=== PATIENT | male | born 1955 | race African-American/Black ===

== ENCOUNTER 2018-06-21 22:39 | Inpatient (IN) | payer OTHER ==
[~2018-06-21] VITALS: Ht 167.6 cm; Wt 61.2 kg
[2018-06-21] MEDS ORDERED: Sodium Chloride 500ML 500 ML IV ONE (22:49)
[2018-06-21] MEDS ORDERED: Solu-MEDROL 125mg Inj IVP ONE (23:00)
[2018-06-21] MEDS: Albuterol ud Inhalation HHN SCH ×3 (23:17→23:42)
[2018-06-21] MEDS: Ipratropium 0.02% Inh Soln 2.5ml UD HHN SCH ×3 (23:17→23:42)
--- NOTE | 2018-06-21 23:25 | Emergency Room Report ---
History of Present Illness General Chief Complaint: Dyspnea/Respdistress Source: Patient, EMS Present Illness HPI 63-year-old male presents ED complaining of shortness of breath. Started earlier today. History of asthma. Has been using his medications and states they're not helping. Given breathing treatment by EMS. Denies chest pain. Denies cough. Denies fevers or chills. Denies sick contacts or recent travel. No other aggravating relieving factors. Denies any other associated symptoms Allergies: Coded Allergies: No Known Allergies (Unverified , 06/21/18) Patient History Past Medical History: asthma Past Surgical History: none Pertinent Family History: none Social History: Denies: smoking, alcohol use, drug use Immunizations: UTD Reviewed Nursing Documentation: PMH: Agreed; PSxH: Agreed Nursing Documentation-PMH Hx Hypertension: Yes Hx Asthma: Yes Review of Systems All Other Systems: negative except mentioned in HPI Physical Exam Vital Signs Date Time Temp Pulse Resp B/P (MAP) Pulse Ox O2 Delivery O2 Flow Rate FiO2 06/21/18 22:42 98.5 120 26 147/99 91 Room Air 98.4 06/21/18 22:48 10.0 06/21/18 23:15 21 Sp02 EP Interpretation: reviewed, normal General Appearance: no apparent distress, alert, GCS 15, non-toxic Head: normocephalic, atraumatic Eyes: bilateral eye normal inspection, bilateral eye PERRL ENT: hearing grossly normal, normal pharynx, no angioedema, normal voice Neck: full range of motion, supple/symm/no masses Respiratory: chest non-tender, lungs clear, accessory muscle use, speaking full sentences, wheezing Cardiovascular #1: regular rate, rhythm, no edema Cardiovascular #2: 2+ carotid (R), 2+ carotid (L), 2+ radial (R), 2+ radial (L) , 2+ dorsalis pedis (R), 2+ dorsalis pedis (L) Gastrointestinal: normal bowel sounds, non tender, soft, non-distended, no guarding, no rebound Rectal: deferred Genitourinary: normal inspection, no CVA tenderness Musculoskeletal: back normal, gait/station normal, normal range of motion, non- tender Neurologic: alert, oriented x3, responsive, motor strength/tone normal, sensory intact, speech normal Psychiatric: judgement/insight normal, memory normal, mood/affect normal, no suicidal/homicidal ideation Reflexes: 3+ bicep (R), 3+ bicep (L), 3+ tricep (R), 3+ tricep (L), 3+ knee (R) , 3+ knee (L) Skin: normal color, no rash, warm/dry, well hydrated Lymphatic: no adenopathy Medical Decision Making Diagnostic Impression: Primary Impression: COPD exacerbation ER Course Hospital Course 63-year-old M presenting to ED with SOB. h/o COPD/asthma Differential diagnoses include: Pneumonia, CHF exacerbation, pneumothorax, fluid overload Clinical course Patient placed on stretcher. On cardiac/vascular sonographer with stable vitals. After initial history and physical, I ordered nebulizer treatments. I ordered labs, IV fluids, EKG, chest x-ray, blood cultures, UA. Labs - no leukocytosis noted, hemoglobin/hematocrit stable, K 3.0, troponins negative CXR - hyperinflated lungs. no infiltrates EKG - NSR, no acute ischemic changes interpreted by me On reassessment patient has continued wheezing. Ordered magnesium. Potassium repleted. Antibiotics given. patient will require admission Case discussed with Dr. Lopez and he agreed to the patient to his service for further care and support I feel this is a highly complex case requiring extensive working including EKG/ Rhythm strip, Xray/CT/US, Blood/urine lab work, repeat exams while in ED, and administration of strong opiates/narcotics for pain control, admission to hospital or close patient follow up. Diagnosis - COPD exacerbation Patient admitted to telemetry in serious condition Labs Test 06/21/18 23:05 06/21/18 23:45 White Blood Count 7.6 K/UL (4.8-10.8) Red Blood Count 4.63 M/UL (4.70-6.10) Hemoglobin 13.8 G/DL (14.2-18.0) Hematocrit 40.6 % (42.0-52.0) Mean Corpuscular Volume 88 FL (80-99) Mean Corpuscular Hemoglobin 29.9 PG (27.0-31.0) Mean Corpuscular Hemoglobin Concent 34.0 G/DL (32.0-36.0) Red Cell Distribution Width 13.4 % (11.6-14.8) Platelet Count 308 K/UL (150-450) Mean Platelet Volume 6.4 FL (6.5-10.1) Neutrophils (%) (Auto) 46.1 % (45.0-75.0) Lymphocytes (%) (Auto) 28.3 % (20.0-45.0) Monocytes (%) (Auto) 12.6 % (1.0-10.0) Eosinophils (%) (Auto) 10.8 % (0.0-3.0) Basophils (%) (Auto) 2.2 % (0.0-2.0) Sodium Level 141 MMOL/L (136-145) Potassium Level 3.0 MMOL/L (3.5-5.1) Chloride Level 104 MMOL/L (98-107) Carbon Dioxide Level 32 MMOL/L (21-32) Anion Gap 5 mmol/L (5-15) Blood Urea Nitrogen 19 mg/dL (7-18) Creatinine 1.4 MG/DL (0.55-1.30) Estimat Glomerular Filtration Rate > 60 mL/min (>60) Glucose Level 106 MG/DL (74-106) Calcium Level 9.2 MG/DL (8.5-10.1) Total Bilirubin 0.4 MG/DL (0.2-1.0) Aspartate Amino Transf (AST/SGOT) 27 U/L (15-37) Alanine Aminotransferase (ALT/SGPT) 24 U/L (12-78) Alkaline Phosphatase 116 U/L (46-116) Total Creatine Kinase 135 U/L (26-308) Creatine Kinase MB 1.0 NG/ML (0.0-3.6) Creatine Kinase MB Relative Index 0.7 Troponin I 0.000 ng/mL (0.000-0.056) Pro-B-Type Natriuretic Peptide 107 pg/mL (0-125) Total Protein 7.8 G/DL (6.4-8.2) Albumin 3.9 G/DL (3.4-5.0) Globulin 3.9 g/dL Albumin/Globulin Ratio 1.0 (1.0-2.7) Urine Color Pale yellow Urine Appearance Clear Urine pH 7 (4.5-8.0) Urine Specific [place] 1.010 (1.005-1.035) Urine Protein Negative (NEGATIVE) Urine Glucose (UA) Negative (NEGATIVE) Urine Ketones Negative (NEGATIVE) Urine Occult Blood Negative (NEGATIVE) Urine Nitrite Negative (NEGATIVE) Urine Bilirubin Negative (NEGATIVE) Urine Urobilinogen Normal MG/DL (0.0-1.0) Urine Leukocyte Esterase Negative (NEGATIVE) EKG Diagnostic Results Rate: normal Rhythm: NSR ST Segments: no acute changes ASA given to the pt in ED: No Rhythm Strip Diag. Results EP Interpretation: yes Rhythm: NSR, no PVC's, no ectopy Chest X-Ray Diagnostic Results Chest X-Ray Diagnostic Results : Chest X-Ray Ordered: Yes # of Views/Limited/Complete: 1 View Indication: Shortness of Breath EP Interpretation: Yes Interpretation: no consolidation, no effusion, no pneumothorax, no acute cardiopulmonary disease Impression: No acute disease Electronically Signed by: Electronically signed by Tr Morales MD Last Vital Signs Date Time Temp Pulse Resp B/P (MAP) Pulse Ox O2 Delivery O2 Flow Rate FiO2 06/21/18 23:18 83 20 Room Air 21 06/21/18 23:15 94 06/21/18 22:48 10.0 06/21/18 22:42 98.5 147/99 98.4 Status: improved Condition: Serious Referrals: [facility],REFERRING (PCP) Tr Morales MD Jun 21, 2018 23:25
[2018-06-21 23:30] LABS: BASOPHILS % (AUTO) 2.2 % (0.0-2.0); EOSINOPHILS % (AUTO) 10.8 % (0.0-3.0); HEMATOCRIT 40.6 % (42.0-52.0); HEMOGLOBIN 13.8 G/DL (14.2-18.0); LYMPHOCYTES % (AUTO) 28.3 % (20.0-45.0); MEAN CORPUSCULAR VOLUME 88 FL (80-99); MONOCYTES % (AUTO) 12.6 % (1.0-10.0); NEUTROPHILS % (AUTO) 46.1 % (45.0-75.0); PLATELET COUNT 308 K/UL (150-450); RED BLOOD COUNT 4.63 M/UL (4.70-6.10); RED CELL DISTRIBUTION WIDTH 13.4 % (11.6-14.8); WHITE BLOOD COUNT 7.6 K/UL (4.8-10.8)
[2018-06-21 23:48] LABS: ANION GAP 5 mmol/L (5-15); BLOOD UREA NITROGEN 19 mg/dL (7-18); CALCIUM 9.2 MG/DL (8.5-10.1); CARBON DIOXIDE 32 MMOL/L (21-32); CHLORIDE 104 MMOL/L (98-107); CREATININE 1.4 MG/DL (0.55-1.30); SODIUM 141 MMOL/L (136-145)
[2018-06-22] VITALS (7 sets, daily range): BP systolic 125–165; BP diastolic 75–91
[2018-06-22 00:02] LABS: ALANINE AMINOTRANSFERASE 24 U/L (12-78); ALBUMIN 3.9 G/DL (3.4-5.0); ALKALINE PHOSPHATASE 116 U/L (46-116); ASPARTATE AMINO TRANSFERASE 27 U/L (15-37); BILIRUBIN,TOTAL 0.4 MG/DL (0.2-1.0); CREATINE KINASE 135 U/L (26-308)
[2018-06-22 00:07] LABS: APPEARANCE,URINE CLEAR; BILIRUBIN, URINE NEGATIVE (NEGATIVE); COLOR,URINE PALE YELLOW; GLUCOSE, URINE (UA) NEGATIVE (NEGATIVE); KETONES,URINE NEGATIVE (NEGATIVE); LEUKOCYTE ESTERASE ,URINE NEGATIVE (NEGATIVE); NITRITE,URINE NEGATIVE (NEGATIVE); PH,URINE 7 (4.5-8.0); PROTEIN,URINE NEGATIVE (NEGATIVE); UROBILINOGEN,URINE NORMAL MG/DL (0.0-1.0)
[2018-06-22] MEDS ORDERED: cefTRIAXone 1 GM in NS 55 ML IV SCH (00:30)
[2018-06-22] MEDS ORDERED: Azithromycin 500 MG in NS 275 ML IV SCH (00:30)
[2018-06-22] MEDS ORDERED: CYCLOBENZAPRINE10 MG ORAL (02:19)
[2018-06-22] MEDS ORDERED: ALBUTEROL2.5 MG/3 M INH (02:19)
[2018-06-22] MEDS ORDERED: ADALAT10 MG ORAL (02:19)
[2018-06-22] MEDS ORDERED: ASPIRIN81 MG ORAL (02:19)
[2018-06-22] MEDS: Solu-MEDROL 40mg Inj IVP SCH ×3 (07:07→21:31)
[2018-06-22] MEDS: Albuterol/Ipratropium 3ml neb HHN SCH ×5 (07:55→23:59)
--- NOTE | 2018-06-22 09:22 | Diagnostic Imaging Report ---
Indication: Shortness of breath Technique: One view of the chest Comparison: none Findings: There is some atelectasis at the left lung base. The lungs and pleural spaces are otherwise clear. The heart size is normal Impression: Left basilar atelectasis. No acute process otherwise This agrees with the preliminary interpretation provided by the emergency room physician
[2018-06-22] MEDS: Guaifenesin/DM 10ml syrup ORAL PRN ×2 (09:41→21:37)
[2018-06-22] MEDS: NIFEdipine 10mg cap ORAL SCH ×3 (11:16→23:43)
[2018-06-22] MEDS: Azithromycin 250mg tab ORAL SCH (20:38)
--- NOTE | 2018-06-22 21:45 | History and Physical Report ---
DATE OF ADMISSION: 06/22/2018 CHIEF COMPLAINT: Short of breath. HISTORY OF PRESENT ILLNESS: This is a 63-year-old male with long-standing asthma, has several days of increasing shortness of breath. He has albuterol and a nebulizer at home, but does not take steroids by inhalation or orally. He has never smoked. He has some cough with clear sputum production. He has no high fever or chest pain. He came to the emergency department, was in severe respiratory distress and was given breathing treatments with improvement. PAST MEDICAL HISTORY: Hypertension and asthma. ALLERGIES: None. MEDICATIONS: Reviewed and reconciled. He takes albuterol inhaler and nebulizer and takes nifedipine. SOCIAL HISTORY: He does not drink or smoke or use illicit drugs. He is born in [place]. PHYSICAL EXAMINATION: GENERAL: He is well developed and well nourished. VITAL SIGNS: Heart rate in the 120. He is in respiratory distress. These improved after treatment in the emergency department and was in no distress when I saw him. HEENT: Head is normocephalic. NECK: No jugular venous distention. CHEST: Decreased air entry with some expiratory wheezing. CARDIAC: Rhythm is regular and rapid. ABDOMEN: Soft and nontender. Liver and spleen are not enlarged. EXTREMITIES: No clubbing, cyanosis, or edema. DIAGNOSTIC DATA: Chest x-ray shows some atelectasis with potassium low at 3.0. He has mild anemia. IMPRESSION: 1. Status asthmaticus. 2. Hypokalemia. 3. Hypertension. 4. Atelectasis. PLAN: The patient shows no signs of cardiac disease at this time. The tachycardia is secondary to his respiratory problem. We will treat with bronchodilator, steroids, and antibiotics. Early discharge is anticipated pending his response to treatment. Markus Lopez M.D. DR: MARILOU JOB#: [id number] CC: Markus Lopez M.D.; Fax#: [phone]
[2018-06-23] VITALS: BP 161/80
[2018-06-23] MEDS ORDERED: Zolpidem 5mg tab ORAL PRN (01:45)
[2018-06-23 04:00] VITALS: BP 143/87
[2018-06-23] MEDS: Solu-MEDROL 40mg Inj IVP SCH (05:51)
[2018-06-23] MEDS: NIFEdipine 10mg cap ORAL SCH ×4 (05:51→23:51)
[2018-06-23] MEDS: Albuterol/Ipratropium 3ml neb HHN SCH ×5 (07:00→23:45)
[2018-06-23 07:17] LABS: HEMATOCRIT 39.3 % (42.0-52.0); HEMOGLOBIN 13.1 G/DL (14.2-18.0); MEAN CORPUSCULAR VOLUME 88 FL (80-99); PLATELET COUNT 302 K/UL (150-450); RED BLOOD COUNT 4.45 M/UL (4.70-6.10); RED CELL DISTRIBUTION WIDTH 13.5 % (11.6-14.8); WHITE BLOOD COUNT 17.3 K/UL (4.8-10.8)
[2018-06-23 07:50] LABS: ALANINE AMINOTRANSFERASE 21 U/L (12-78); ALBUMIN 3.4 G/DL (3.4-5.0); ALBUMIN/GLOBULIN RATIO 0.8 (1.0-2.7); ALKALINE PHOSPHATASE 108 U/L (46-116); ANION GAP 8 mmol/L (5-15); ASPARTATE AMINO TRANSFERASE 20 U/L (15-37); BILIRUBIN,TOTAL 0.2 MG/DL (0.2-1.0); BLOOD UREA NITROGEN 19 mg/dL (7-18); CALCIUM 9.2 MG/DL (8.5-10.1); CARBON DIOXIDE 29 MMOL/L (21-32); CHLORIDE 104 MMOL/L (98-107); CREATININE 1.4 MG/DL (0.55-1.30); POTASSIUM 3.7 MMOL/L (3.5-5.1); SODIUM 141 MMOL/L (136-145)
[2018-06-23 08:00] VITALS: BP 132/79
--- NOTE | 2018-06-23 10:19 | Pulmonology Progress Note ---
Assessment/Plan Assessment/Plan 1. Status asthmaticus, improved 2. Hypokalemia, resolved 3. Hypertension, controlled 4. Atelectasis. not SOB, better did not sleep, likely due to steroids WBC high due to steroids, no signs of sepsis diarrhea, c diff neg K normal poss dc tomorrow on PO steroid taper Subjective Respiratory: Denies: shortness of breath Cardiovascular: Reports: palpitations Gastrointestinal/Abdominal: Reports: diarrhea Allergies: Coded Allergies: No Known Allergies (Unverified , 06/21/18) Objective Last 24 Hour Vital Signs Date Time Temp Pulse Resp B/P (MAP) Pulse Ox O2 Delivery O2 Flow Rate FiO2 06/23/18 09:00 Nasal Cannula 3.0 06/23/18 08:00 97.3 90 18 132/79 (96) 97 97.3 06/23/18 07:19 Room Air 21 06/23/18 07:19 94 Room Air 21 06/23/18 07:19 Room Air 06/23/18 07:19 116 18 94 Room Air 06/23/18 05:51 82 143/87 06/23/18 04:00 97.9 82 18 143/87 (105) 99 97.9 06/23/18 04:00 90 06/23/18 02:45 Nasal Cannula 1.0 24 06/23/18 02:42 88 20 98 Nasal Cannula 2.0 28 06/23/18 00:00 95 06/23/18 00:00 97.9 85 20 161/80 (107) 96 97.9 06/22/18 23:43 76 161/80 06/22/18 23:10 80 20 99 Nasal Cannula 1.0 28 06/22/18 23:00 77 20 95 Room Air 06/22/18 21:00 Nasal Cannula 3.0 06/22/18 20:00 97.4 91 24 149/76 (100) 97 97.4 06/22/18 20:00 91 06/22/18 19:47 82 20 98 Nasal Cannula 1.0 28 06/22/18 19:41 83 20 96 Room Air 21 06/22/18 19:40 95 Room Air 21 06/22/18 19:40 Room Air 21 06/22/18 17:00 87 125/91 06/22/18 16:00 98.1 82 20 125/91 (102) 99 98.1 06/22/18 16:00 87 06/22/18 15:00 87 16 98 Nasal Cannula 3.0 32 06/22/18 14:50 Nasal Cannula 3.0 32 06/22/18 14:50 78 18 98 Nasal Cannula 3.0 32 06/22/18 14:50 98 Nasal Cannula 3.0 32 06/22/18 12:00 89 06/22/18 12:00 97.6 89 20 165/87 (113) 96 97.6 06/22/18 11:16 88 165/87 06/22/18 11:12 91 18 98 Room Air 21 06/22/18 11:00 98 20 92 Room Air 21 Intake and Output 06/22/18 06/23/18 19:00 07:00 Intake Total 360 ml 120 ml Output Total 350 ml Balance 360 ml -230 ml Intake Oral 360 ml 120 ml Output Urine Total 350 ml # Voids 3 1 # Bowel Movements 6 General Appearance: no acute distress HEENT: atraumatic Respiratory/Chest: expiratory wheezing Cardiovascular: normal rate Abdomen: soft, non tender Microbiology Date/Time Source Procedure Growth Status 06/22/18 15:50 Stool Clostridium difficile Toxin Assay - Final Complete Laboratory Tests 06/22/18 11:25: Lactic Acid Level 3.00H 06/23/18 06:30: White Blood Count 17.3#H, Red Blood Count 4.45L, Hemoglobin 13.1L, Hematocrit 39.3L, Mean Corpuscular Volume 88, Mean Corpuscular Hemoglobin 29.4, Mean Corpuscular Hemoglobin Concent 33.3, Red Cell Distribution Width 13.5, Platelet Count 302, Mean Platelet Volume 6.3L, Neutrophils (%) (Auto) , Lymphocytes (%) ( Auto) , Monocytes (%) (Auto) , Eosinophils (%) (Auto) , Basophils (%) (Auto) , Differential Total Cells Counted 100, Neutrophils % (Manual) 81H, Lymphocytes % (Manual) 12L, Monocytes % (Manual) 7, Eosinophils % (Manual) 0, Basophils % ( Manual) 0, Band Neutrophils 0, Platelet Estimate Adequate, Platelet Morphology Normal, Red Blood Cell Morphology Normal, Sodium Level 141, Potassium Level 3.7 , Chloride Level 104, Carbon Dioxide Level 29, Anion Gap 8, Blood Urea Nitrogen 19H, Creatinine 1.4H, Estimat Glomerular Filtration Rate > 60, Glucose Level 138H, Calcium Level 9.2, Total Bilirubin 0.2, Aspartate Amino Transf (AST/SGOT) 20, Alanine Aminotransferase (ALT/SGPT) 21, Alkaline Phosphatase 108, Total Protein 7.6, Albumin 3.4, Globulin 4.2, Albumin/Globulin Ratio 0.8L Current Medications Medications (Trade) Dose Ordered Sig/Roberta Route PRN Reason Start Time Stop Time Status Last Admin Dose Admin Acetaminophen (Tylenol) 650 mg Q4H PRN ORAL Mild Pain/Temp > 100.5 06/22/18 06:45 07/22/18 06:44 06/23/18 08:18 Albuterol/ Ipratropium (Albuterol/ Ipratropium) 3 ml Q4HRT HHN 06/22/18 08:00 06/27/18 07:59 06/22/18 23:59 Azithromycin (Zithromax) 250 mg BEDTIME ORAL 06/22/18 21:00 06/29/18 20:59 06/22/18 20:38 Azithromycin (Zithromax) 250 mg DAILY ORAL 06/23/18 10:30 06/30/18 10:29 Guaifenesin/ Dextromethorphan (Robitussin DM Syrup) 5 ml Q6H PRN ORAL For Cough 06/22/18 09:45 07/22/18 09:44 06/22/18 21:37 Methylprednisolone Sodium Succinate (Solu-MEDROL) 40 mg EVERY 8 HOURS IVP 06/22/18 07:00 07/22/18 06:59 06/23/18 05:51 Nifedipine (Adalat) 10 mg EVERY 6 HOURS ORAL 06/22/18 12:00 07/22/18 11:59 06/23/18 05:51 Pantoprazole (Protonix) 40 mg DAILY ORAL 06/22/18 09:15 07/22/18 09:14 06/23/18 08:17 Potassium Chloride (K-Dur) 20 meq TWICE A DAY ORAL 06/22/18 09:00 07/22/18 08:59 06/23/18 08:18 Zolpidem Tartrate (Ambien) 5 mg HSPRN PRN ORAL Insomnia 06/23/18 01:45 06/30/18 01:44 06/23/18 01:51 Markus Lopez MD Jun 23, 2018 10:19
[2018-06-23] MEDS ORDERED: Azithromycin 250mg tab ORAL SCH (10:30)
[2018-06-23 12:00] VITALS: BP 149/86
[2018-06-23] MEDS: Guaifenesin/DM 10ml syrup ORAL PRN (13:36)
[2018-06-23 16:00] VITALS: BP 134/79
[2018-06-23 20:00] VITALS: BP 156/84
[2018-06-23] MEDS: Azithromycin 250mg tab ORAL SCH (20:45)
[2018-06-24] VITALS: BP 139/72
[2018-06-24] MEDS: Albuterol/Ipratropium 3ml neb HHN SCH ×3 (03:00→10:18)
[2018-06-24 04:00] VITALS: BP 119/74
[2018-06-24] MEDS: NIFEdipine 10mg cap ORAL SCH ×2 (05:38→12:00)
[2018-06-24 08:00] VITALS: BP 116/67
[2018-06-24] MEDS ORDERED: ZITHROMAX250 MG ORAL (09:16)
[2018-06-24] MEDS ORDERED: PREDNISONE20 MG ORAL (09:16)
[2018-06-24] MEDS ORDERED: ADVAIR 500-501 EACH INH (09:16)
[2018-06-24 12:00] VITALS: BP 129/86
--- NOTE | 2018-06-25 08:17 | Discharge Summary ---
Discharge Summary Discharge Summary _ DATE OF ADMISSION: 06/22/2018 DATE OF DISCHARGE: 06/24/2018 BRIEF HOSPITAL COURSE: Patient is a 63-year-old male, with history of long-standing asthma, presented to ED via EMS frances to several days of increased shortness of breath. He had been using albuterol and nebulizers at home, although not on any type of steroid inhalation or orally. He denied smoking history. He was complaining of cough with clear sputum production. No fever, no chest pain. He has history of hypertension and asthma. On evaluation at ED, he was given nebulizer treatments. Blood work did not show leukocytosis, hemoglobin and hematocrit were stable, and troponin was negative. He had low potassium 3.0. He had a chest x-ray done that showed left basilar atelectasis. EKG showed normal sinus rhythm with no acute ischemic changes. At ED, he continued to have wheezing. He was given magnesium and potassium replacement. Lactic acid was elevated. He was started on IV Zithromax and ceftriaxone. He was admitted for status asthmaticus. He was given Solu-Medrol IV and DuoNeb nebulizer treatment. He was given Zithromax by mouth. Blood culture did not isolate any growth. He had diarrhea ; C. difficile was negative. He was continued on nifedipine for blood pressure control. Steroid was tapered to po Prednisone. Breathing improved, he was saturating well on RA. No SOB. There was a rise in WBC, secondary to steroid use. He was cleared for discharge home. FINAL DIAGNOSES: Status asthmaticus Hypokalemia, resolved Hypertension, controlled Atelectasis DISPOSITION: Patient was discharged home. DISCHARGE MEDICATIONS: Refer to Discharge Medication List. DISCHARGE INSTRUCTIONS: Follow up with PCP in a week. I have been assigned to dictate discharge summary on this account, and I was not involved in the patient's management. Zainab Pressley NP Jun 25, 2018 08:17
== END 2018-06-24 12:15 | disposition home or self-care (01) | DRG 202 ==
LOC: EDBD 22:39 → EMR 23:15 → 2E 06-22 01:17 → EDBEDREQ 06-22 01:32 → 2E 06-22 03:34
DX: J45.902 Unspecified asthma with status asthmaticus (principal); J98.11 Atelectasis; E87.6 Hypokalemia; I10 Essential (primary) hypertension
CPT/HCPCS: 36415; 71045; 80053; 81003; 82550; 82553; 83605; 83880; 84484; 85007; 85025; 87040; 87324; 93005; 94640; 94664; 94760; J7620; J8499